=== PATIENT | male | born 1975 | race Two or more races ===

== ENCOUNTER 2022-06-04 08:37 | Outpatient (CLI) | payer OTHER | END 2022-06-05 08:42 | disposition home or self-care (01) | LOC: PPH VACUNA 08:37 | PROVIDERS: ATTEND Emergency Medicine Pediatric Emergency Medicine | DX: Z23 Encounter for immunization (principal) ==

== ENCOUNTER 2022-10-21 10:39 | Outpatient (CLI) | payer OTHER | END 2022-10-21 10:41 | disposition home or self-care (01) | LOC: LAB 10:39 | PROVIDERS: ATTEND Preventive Medicine Occupational Medicine | DX: U07.1 COVID-19 (principal) ==

== ENCOUNTER 2023-06-04 | Outpatient (CLI) | payer OTHER | END 2023-06-04 00:15 | disposition home or self-care (01) | LOC: PPH VACUNA | PROVIDERS: ATTEND Emergency Medicine Pediatric Emergency Medicine | DX: Z23 Encounter for immunization (principal) ==

== ENCOUNTER 2024-02-15 10:52 | Emergency (ER) | payer OTHER ==
[~2024-02-15] VITALS: Ht 172.7 cm; Wt 87.1 kg
[2024-02-15] MEDS ORDERED: KETOROLAC TROMETHAMINE 30 MG VIAL IM STA (11:49)
[2024-02-15 12:39] LABS: HEMATOCRIT 42.1 % (39.0-48.0); HEMOGLOBIN 14.6 g/dL (13-16.00); MEAN CELL VOLUME 85.5 fL (80.0-100.00); MEAN CORPUSCULAR HEMOGLOBIN 29.6 pg (27.00-32.0); MEAN CORPUSCULAR HGB CONC 34.6 g/dl (32.0-36.0); PLATELET COUNT 307 K/uL (150-450); RED BLOOD COUNT 4.93 M/uL (4.00-6.00); RED CELL DISTRIBUTION WIDTH 13.9 % (11.5-14.5)
[2024-02-15] MEDS ORDERED: ENALAPRILAT DIHYDRATE 2.5 MG/2 ML VIAL IV STA (13:21)
[2024-02-15 14:30] LABS: CALCIUM 8.9 mg/dL (8.5-10.1); CREATININE SERUM 0.95 mg/dL (0.70-1.30); GFR 84.98; POTASSIUM 3.68 mEq/L (3.5-5.1)
[2024-02-15] MEDS ORDERED: cloNIDine HCL 0.2 MG TABLET PO STA (15:25)
== END 2024-02-15 19:07 | disposition home or self-care (01) ==
LOC: ER 10:52
PROVIDERS: General Practice
DX: J06.9 Acute upper respiratory infection, unspecified (principal); Z88.0 Allergy status to penicillin

== ENCOUNTER 2024-08-03 09:00 | Outpatient (CLI) | payer OTHER | END 2024-08-03 10:00 | disposition home or self-care (01) | LOC: PPH VACUNA 09:00 | PROVIDERS: ATTEND Emergency Medicine Pediatric Emergency Medicine | DX: Z23 Encounter for immunization (principal) ==

== ENCOUNTER 2024-09-07 13:47 | Emergency (ER) | payer OTHER ==
[~2024-09-07] VITALS: Ht 172.7 cm; Wt 88.5 kg
[2024-09-07] MEDS ORDERED: LOTREL 10-20 M1 EACH PO (14:04)
[2024-09-07] MEDS ORDERED: GUAIFENESIN/DEXTROMETHORPHAN 10ML BLIST.PACK PO ONE (14:45)
[2024-09-07] MEDS ORDERED: CETIRIZINE HCL 5 MG/5 ML ML PO ONE (14:45)
[2024-09-07] MEDS ORDERED: ACETAMINOPHEN 500 MG GEL..CAP PO ONE (14:45)
[2024-09-07 15:39] LABS: HEMATOCRIT 40.1 % (39.0-48.0); HEMOGLOBIN 13.8 g/dL (13-16.00); MEAN CELL VOLUME 84.3 fL (80.0-100.00); MEAN CORPUSCULAR HEMOGLOBIN 29.1 pg (27.00-32.0); MEAN CORPUSCULAR HGB CONC 34.5 g/dl (32.0-36.0); PLATELET COUNT 311 K/uL (150-450); RED BLOOD COUNT 4.76 M/uL (4.00-6.00); RED CELL DISTRIBUTION WIDTH 14.7 % (11.5-14.5)
[2024-09-07] MEDS ORDERED: OSELTAMIVIR PHOSPHATE 75 MG CAPSULE PO ONE (17:00)
[2024-09-07] MEDS ORDERED: OSEL75CA PO (17:10)
[2024-09-07] MEDS ORDERED: QC TUSSIN DM L118 ML PO (17:10)
[2024-09-07] MEDS ORDERED: ZYRTEC10 MG PO (17:10)
== END 2024-09-07 17:18 | disposition home or self-care (01) ==
LOC: ER 13:47
PROVIDERS: Nurse Practitioner Family
DX: J10.1 Influenza due to other identified influenza virus with other respiratory manifestations (principal); E78.00 Pure hypercholesterolemia, unspecified; I10 Essential (primary) hypertension; I49.8 Other specified cardiac arrhythmias; Z88.0 Allergy status to penicillin; Z20.822 Contact with and (suspected) exposure to COVID-19

== ENCOUNTER 2024-10-19 06:43 | Outpatient (CLI) | payer OTHER ==
[~2024-10-19 06:43] MED LIST: LOTREL 10-20 M1 EACH PO; OSEL75CA PO; QC TUSSIN DM L118 ML PO; ZYRTEC10 MG PO
[2024-10-19 07:39] LABS: HEMATOCRIT 40.8 % (39.0-48.0); HEMOGLOBIN 14.1 g/dL (13-16.00); MEAN CORPUSCULAR HEMOGLOBIN 29.3 pg (27.00-32.0); MEAN CORPUSCULAR HGB CONC 34.5 g/dl (32.0-36.0); PLATELET COUNT 318 K/uL (150-450); RED BLOOD COUNT 4.81 M/uL (4.00-6.00); RED CELL DISTRIBUTION WIDTH 14.2 % (11.5-14.5)
[2024-10-19 08:39] LABS: ALBUMIN 3.8 gm/dL (3.4-5.0); BILIRUBIN TOTAL 0.43 mg/dL (0.3-1.2); CALCIUM 9.3 mg/dL (8.5-10.1); CHOL HDL RATIO 3.5 (0-5.0); CREATININE SERUM 0.8 mg/dL (0.70-1.30); GFR 103.18; GLOBULINA 3.5 G/DL (2.4-3.5); POTASSIUM 4.28 mEq/L (3.5-5.1); TOTAL PROTEIN 7.3 gm/dL (6.4-8.2); TSH 2.91 uIU/mL (0.358-3.74)
== END 2024-10-19 06:46 | disposition home or self-care (01) ==
LOC: LAB 06:43
PROVIDERS: ATTEND Internal Medicine Cardiovascular Disease
DX: I11.9 Hypertensive heart disease without heart failure (principal); E78.2 Mixed hyperlipidemia; E03.1 Congenital hypothyroidism without goiter; E11.9 Type 2 diabetes mellitus without complications

== ENCOUNTER 2025-01-10 07:44 | Emergency (ER) | payer OTHER ==
[~2025-01-10] VITALS: Ht 172.7 cm; Wt 86.2 kg
[2025-01-10] MEDS ORDERED: DEXAMETHASONE SODIUM PHOSPHATE 4 MG/ML VIAL IM STA (08:40)
[2025-01-10] MEDS ORDERED: DEXAMETHASONE SODIUM PHOSPHATE 4 MG/ML VIAL ONE (09:10)
[2025-01-10 09:32] LABS: HEMOGLOBIN 14.2 g/dL (13-16.00); MEAN CELL VOLUME 85.5 fL (80.0-100.00); MEAN CORPUSCULAR HEMOGLOBIN 28.3 pg (27.00-32.0); MEAN CORPUSCULAR HGB CONC 33.1 g/dl (32.0-36.0); PLATELET COUNT 320 K/uL (150-450); RED BLOOD COUNT 5.02 M/uL (4.00-6.00); RED CELL DISTRIBUTION WIDTH 13.9 % (11.5-14.5)
== END 2025-01-10 11:05 | disposition home or self-care (01) ==
LOC: ER 07:44
PROVIDERS: General Practice
DX: B34.9 Viral infection, unspecified (principal); Z20.822 Contact with and (suspected) exposure to COVID-19; Z88.0 Allergy status to penicillin

== ENCOUNTER 2025-02-03 13:01 | Outpatient (CLI) | payer OTHER ==
[2025-02-03 13:40] LABS: HEMATOCRIT 41.8 % (39.0-48.0); HEMOGLOBIN 14.4 g/dL (13-16.00); MEAN CELL VOLUME 83.9 fL (80.0-100.00); MEAN CORPUSCULAR HEMOGLOBIN 28.9 pg (27.00-32.0); MEAN CORPUSCULAR HGB CONC 34.4 g/dl (32.0-36.0); PLATELET COUNT 368 K/uL (150-450); RED BLOOD COUNT 4.98 M/uL (4.00-6.00); RED CELL DISTRIBUTION WIDTH 14.5 % (11.5-14.5)
[2025-02-03 14:16] LABS: COVID-19 AG NEGATIVE (NEGATIVE)
[2025-02-03 14:17] LABS: INFLUENZA A AG NEGATIVE (NEGATIVE)
[2025-02-03 14:56] LABS: MYCOPLASMA PNEUMONIAE IGM NON REACTIVE (NO REACTIVE)
[2025-02-03 15:04] LABS: ALBUMIN 4.1 gm/dL (3.4-5.0); BILIRUBIN TOTAL 0.4 mg/dL (0.3-1.2); CALCIUM 9.7 mg/dL (8.5-10.1); CHOL HDL RATIO 5.5 (0-5.0); CREATININE SERUM 0.84 mg/dL (0.70-1.30); GFR 97.53; GLOBULINA 3.9 G/DL (2.4-3.5)
[2025-02-03 15:22] LABS: TSH 4.52 uIU/mL (0.358-3.74)
== END 2025-02-03 15:07 | disposition home or self-care (01) ==
LOC: LAB 13:01
PROVIDERS: ATTEND Internal Medicine
DX: I11.9 Hypertensive heart disease without heart failure (principal); E11.9 Type 2 diabetes mellitus without complications; E78.9 Disorder of lipoprotein metabolism, unspecified; E03.9 Hypothyroidism, unspecified; J11.1 Influenza due to unidentified influenza virus with other respiratory manifestations; R50.9 Fever, unspecified; Z20.822 Contact with and (suspected) exposure to COVID-19; U07.1 COVID-19

== ENCOUNTER → 2025-04-10 07:07 | Outpatient (CLI) | payer OTHER ==
[2025-04-10 08:35] LABS: ALT/SGPT 46.0 U/L (12-78); AST/SGOT 23.0 U/L (15-37); BILIRUBIN TOTAL 0.47 mg/dL (0.3-1.2); BUN CREA RATIO 13.0 (7.0-25.0); CHOL HDL RATIO 3.5 (0-5.0); CREATININE SERUM 0.75 mg/dL (0.70-1.30); GFR 111.15; GLOBULINA 3.4 G/DL (2.4-3.5); GLUCOSE FASTING 109.0 mg/dL (65-100); HDL 42.0 mg/dl (40-60); LDL 49.0 mg/dl (0-130); OSMOLALITY SERUM 285.0 MOSM/KG (275-295); VLDL 57.0 (0-39)
== END | disposition home or self-care (01) ==
LOC: LAB 07:07
PROVIDERS: ATTEND Internal Medicine
DX: E70.20 Disorder of tyrosine metabolism, unspecified (principal)

== ENCOUNTER 2025-05-19 09:17 | Outpatient (CLI) | payer OTHER ==
[2025-05-19 09:38] LABS: BASO % 1.1 % (0.1-1.2); EOS # 1.15 (0.04-0.54); EOS % 10.8 % (0.7-7.0); LYMPH # 1.06 (1.18-3.74); LYMPH % 10.0 % (19.3-53.1); MEAN PLATELET VOLUME 10.00 fl (9.4-12.4); MONO # 0.94 (0.24-0.82); MONO % 8.8 % (4.7-12.5); NEUT # 7.19 (1.56-6.13); NEUT % 67.6 % (34.0-71.1); RED CELL DISTRIBUTION WIDTH 13.3 % (11.6-14.4)
[2025-05-19 10:04] LABS: COVID-19 AG NEGATIVE (NEGATIVE)
[2025-05-19 11:10] LABS: MYCOPLASMA PNEUMONIAE IGM NON REACTIVE (NO REACTIVE)
== END 2025-05-19 09:26 | disposition home or self-care (01) ==
LOC: LAB 09:17
PROVIDERS: ATTEND Internal Medicine
DX: J11.1 Influenza due to unidentified influenza virus with other respiratory manifestations (principal); R50.9 Fever, unspecified; Z20.822 Contact with and (suspected) exposure to COVID-19; U07.1 COVID-19

== ENCOUNTER 2025-05-30 07:56 | Outpatient (CLI) | payer OTHER | END 2025-05-30 07:57 | disposition home or self-care (01) | LOC: NUCLEAR 07:56 | PROVIDERS: ATTEND Internal Medicine | DX: I20.9 Angina pectoris, unspecified (principal) ==

== ENCOUNTER 2025-08-03 08:22 | Outpatient (CLI) | payer OTHER ==
[2025-08-03 09:10] LABS: BASO % 1.4 % (0.1-1.2); EOS # 0.23 (0.04-0.54); EOS % 3.1 % (0.7-7.0); LYMPH # 1.36 (1.18-3.74); LYMPH % 18.5 % (19.3-53.1); MEAN PLATELET VOLUME 9.90 fl (9.4-12.4); MONO # 0.53 (0.24-0.82); MONO % 7.2 % (4.7-12.5); NEUT # 5.02 (1.56-6.13); NEUT % 68.0 % (34.0-71.1); RED CELL DISTRIBUTION WIDTH 13.5 % (11.6-14.4)
[2025-08-03 09:11] LABS: ob NEGATIVE (NEGATIVE)
[2025-08-03 09:18] LABS: COVID-19 AG NEGATIVE (NEGATIVE)
[2025-08-03 09:19] LABS: ERYTHROCYTE SEDIMENTATION RATE 31 mm/hr (0-15)
[2025-08-03 09:40] LABS: URINE APPEARANCE Clear; URINE BILIRRUBIN Negative (NEGATIVE); URINE BLOOD Negative; URINE COLOR Yellow; URINE GLUCOSE Negative (NEGATIVE); URINE KETONE Negative (NEGATIVE); URINE LEUKOCYTE Negative; URINE NITRATE Negative; URINE PROTEIN Negative (NEGATIVE); URINE UROBILINOGEN 0.2 E.U./dl
[2025-08-03 09:41] LABS: URINE BACTERIA 13.1 uL (0.0-1933); URINE EPITHELIAL CELLS 1.5 uL (0.0-38.8); URINE WBC 6.1 uL (0.0-23.2)
[2025-08-03 09:44] LABS: URINE CAST 0.00 uL (0.0-1.40); URINE RBC 1.1 uL (0.0-20.8)
[2025-08-03 10:19] LABS: ALT/SGPT 65 U/L (12-78); AST/SGOT 22 U/L (15-37); BILIRUBIN TOTAL 0.48 mg/dL (0.3-1.2); BUN CREA RATIO 14 (7.0-25.0); CHOL HDL RATIO 4.0 (0-5.0); CREATININE SERUM 0.84 mg/dL (0.70-1.30); FREE TRIODOTIRONINE 3.46 pg/ml (2.18-3.98); GFR 97.53; GLOBULINA 3.7 G/DL (2.4-3.5); GLUCOSE FASTING 120 mg/dL (65-100); HDL 49 mg/dl (40-60); OSMOLALITY SERUM 280 MOSM/KG (275-295); T4 TOTAL 8.62 UG/DL (4.5-12.1); TSH 2.570 uIU/mL (0.358-3.74)
[2025-08-03 11:07] LABS: MYCOPLASMA PNEUMONIAE IGM NON REACTIVE (NO REACTIVE)
[2025-08-03 11:32] LABS: LDL 87 mg/dl (0-130); PROSTATIC SPECIFIC ANTIGEN 0.816 NG/ML (0.010-4.00); VLDL 62 (0-39)
== END 2025-08-03 23:00 | disposition home or self-care (01) ==
LOC: LAB 08:22
PROVIDERS: ATTEND Internal Medicine
DX: I11.9 Hypertensive heart disease without heart failure (principal); U07.1 COVID-19; E55.9 Vitamin D deficiency, unspecified; Z13.220 Encounter for screening for lipoid disorders; Z12.11 Encounter for screening for malignant neoplasm of colon; Z13.29 Encounter for screening for other suspected endocrine disorder; Z12.5 Encounter for screening for malignant neoplasm of prostate; J11.1 Influenza due to unidentified influenza virus with other respiratory manifestations; R50.9 Fever, unspecified; Z20.822 Contact with and (suspected) exposure to COVID-19

== ENCOUNTER 2025-08-15 11:16 | Outpatient (CLI) | payer OTHER | END 2025-08-15 11:26 | disposition home or self-care (01) | LOC: PPH VACUNA 11:16 | PROVIDERS: ATTEND Emergency Medicine Pediatric Emergency Medicine | DX: Z23 Encounter for immunization (principal) ==

== ENCOUNTER 2025-10-04 09:30 | Outpatient (CLI) | payer OTHER ==
[2025-10-04 10:03] LABS: BASO % 0.9 % (0.1-1.2); EOS # 0.13 (0.04-0.54); EOS % 1.1 % (0.7-7.0); LYMPH # 0.99 (1.18-3.74); LYMPH % 8.1 % (19.3-53.1); MEAN PLATELET VOLUME 9.90 fl (9.4-12.4); MONO # 1.21 (0.24-0.82); MONO % 9.9 % (4.7-12.5); NEUT # 9.58 (1.56-6.13); NEUT % 78.7 % (34.0-71.1); RED CELL DISTRIBUTION WIDTH 13.4 % (11.6-14.4)
[2025-10-04 10:48] LABS: COVID-19 AG NEGATIVE (NEGATIVE)
[2025-10-04 11:22] LABS: ALT/SGPT 73.0 U/L (12-78); AST/SGOT 27.0 U/L (15-37); BILIRUBIN TOTAL 0.62 mg/dL (0.3-1.2); BUN CREA RATIO 20.0 (7.0-25.0); CREATININE SERUM 0.86 mg/dL (0.70-1.30); GFR 94.52; GLOBULINA 3.5 G/DL (2.4-3.5); GLUCOSE FASTING 171.0 mg/dL (65-100); OSMOLALITY SERUM 285.0 MOSM/KG (275-295)
[2025-10-04 11:26] LABS: MYCOPLASMA PNEUMONIAE IGM NON REACTIVE (NO REACTIVE)
== END 2025-10-04 10:35 | disposition home or self-care (01) ==
LOC: LAB 09:30
PROVIDERS: ATTEND Internal Medicine
DX: J11.1 Influenza due to unidentified influenza virus with other respiratory manifestations (principal); R50.9 Fever, unspecified; Z20.822 Contact with and (suspected) exposure to COVID-19; U07.1 COVID-19